=== PATIENT | female | born 1990 | race Caucasian/White ===

== ENCOUNTER 2018-10-15 00:13 | Emergency (ER) | payer MEDICAID, OTHER ==
[~2018-10-15] VITALS: Ht 154.9 cm; Wt 49.0 kg
[2018-10-15 02:03] VITALS: BP 115/71
== END 2018-10-15 04:11 | disposition home or self-care (01) ==
LOC: ER 00:13 → EDBD 00:13 → ER 04:11
DX: O9A.211 Injury, poisoning and certain other consequences of external causes complicating pregnancy, first trimester (principal); S19.9XXA Unspecified injury of neck, initial encounter; Z3A.14 14 weeks gestation of pregnancy; Z88.0 Allergy status to penicillin; Z88.1 Allergy status to other antibiotic agents; V43.52XA Car driver injured in collision with other type car in traffic accident, initial encounter; Y93.89 Activity, other specified; Y99.8 Other external cause status; Y92.410 Unspecified street and highway as the place of occurrence of the external cause
CPT/HCPCS: 76805